=== PATIENT | male | born 1940 | race Caucasian/White ===

== ENCOUNTER 2018-07-25 10:54 | Emergency (ER) | payer MEDICARE ==
[2018-07-25] MEDS ORDERED: Sodium Chloride 0.9% 10 ML Syringe FLUSH PRN (11:16)
--- NOTE | 2018-07-25 11:35 | EDM.PDOC ---
ED HPI GENERAL MEDICAL PROBLEM - General Chief Complaint: Cardiovascular Problem Stated Complaint: FROM [facility] Time Seen by Provider: 07/25/18 11:10 Source of Information: Reports: Patient History Limitations: Reports: No Limitations - History of Present Illness INITIAL COMMENTS - FREE TEXT/NARRATIVE: Antony is a 77 year old male who was sent to the ED today from cardiac rehab as he was found to be in atrial flutter. Patient denies any known hx of this. Patient had an AL 2 months ago, was seen at [facility] in [place] and had 3 stents placed. Patient has been doing cardiac rehab since and has been doing quite well. Patient was started on Brilinta and recently transitioned to Plavix , he reports soft stools with this but denies any hematochezia or bloody stools. Patient is completely asymptomatic, he denies any chest pain, sob, headache, lightheadedness or other complaints. He denies any recent illness, fever, or URI symptoms. Patient is on Lisinopril at home as well as Metoprolol and Gemfibrozil. Patient denies any weight change or lower extremity swelling. Onset: Today - Related Data Allergies Allergy/AdvReac Type Severity Reaction Status Date / Time sulfabenzamide Allergy Hives Verified 12/08/13 23:01 Home Meds: Home Meds Aspirin [Low Dose Aspirin EC] 81 mg PO DAILY 12/08/13 [History] Gemfibrozil 600 mg PO BEDTIME 12/08/13 [History] Lisinopril [Prinivil] 10 mg PO DAILY 12/08/13 [History] atorvaSTATin [Lipitor] 40 mg PO BEDTIME 12/08/13 [History] Clopidogrel [Plavix] 75 mg PO DAILY 07/25/18 [History] Metoprolol Succinate 25 mg PO DAILY 07/25/18 [History] Past Medical History HEENT History: Reports: Impaired Vision Cardiovascular History: Reports: Hypertension, AL, Stents - Infectious Disease History Infectious Disease History: Reports: Chicken Pox, Measles, Mumps - Past Surgical History Cardiovascular Surgical History: Reports: Coronary Artery Stent Social & Family History - Tobacco Use Smoking Status *Q: Never Smoker - Caffeine Use Caffeine Use: Reports: Coffee - Recreational Drug Use Recreational Drug Use: No ED ROS GENERAL - Review of Systems Review Of Systems: ROS reveals no pertinent complaints other than HPI. ED EXAM, GENERAL - Physical Exam Exam: See Below Exam Limited By: No Limitations General Appearance: Alert, WD/WN, No Apparent Distress Eye Exam: Bilateral Eye: EOMI Nose: Normal Inspection Throat/Mouth: Normal Inspection, Normal Oropharynx Neck: Normal Inspection, Supple, Non-Tender Respiratory/Chest: No Respiratory Distress, Lungs Clear, Normal Breath Sounds, No Accessory Muscle Use, Chest Non-Tender Cardiovascular: Normal Peripheral Pulses, Regular Rate, Rhythm, No Murmur, Bradycardia GI/Abdominal: Normal Bowel Sounds, Soft, Non-Tender Extremities: Normal Inspection, Normal Range of Motion, Non-Tender, No Pedal Edema Neurological: Alert, Oriented, CN II-XII Intact Psychiatric: Normal Affect Skin Exam: Warm, Dry, Intact Lymphatic: No Adenopathy EKG INTERPRETATION Rhythm: Other (Juntional Rhythm with some noted P waves in anterior lateral leads) Armour: LAD-Left Armour Deviation P-Wave: Variable QRS: Normal ST-T: Normal QT: Normal Comparison: Change From Previous EKG (2014 shows a NSR with normal rate, normal axis) EKG Interpretation Comments: Repeat EKG shows a sinus bradycardia with no ectopy, no flutter, no signs of acute ischemia Course - Vital Signs Last Recorded V/S: Last Vital Signs Temp 36.9 C 07/25/18 11:00 Pulse 48 L 07/25/18 11:00 Resp 16 07/25/18 11:00 BP 166/73 H 07/25/18 11:00 Pulse Ox 100 07/25/18 11:00 Antony is a very pleasant 77 year old male who presents today from cardiac rehab for atrial flutter. Please refer to HPI and focused exam. Patient arrives here bradycardic which is not new per hx, otherwise hemodynamically stable and afebrile and completely asymptomatic, exam unremarkable. Patient in and out of atrial flutter on monitor. Blood work including CBC, BMP, Troponin and Magnesium are all unremarkable. Repeat EKG with sinus bradycardia. I discussed patient's case with Dr. Phipps, expanded duty dental assistant from [facility] who recommeded stopping aspirin, starting Xarelto or something equivocal and continue with plavix cardiology follow up in 1-2 weeks to discuss possible need for ablation. I discussed recommendations with patient, he was agreeable, we discussed at length bleeding concerns, what to watch for as well as when to return to the ED. Patient okay to attend cardiac rehab on Wednesday. [place] will [place] back [place] on the to see his primary expanded duty dental assistant. Patient instructed to stop the aspiring. Patient discharged in stable condition. - Orders/Labs/Meds Orders: Active Orders 24 hr Category Date Time Status EKG Documentation Completion [RC] ASDIRECTED Care 07/25/18 11:17 Active Peripheral IV Care [RC] . DIRECTED Care 07/25/18 11:16 Active Peripheral IV Insertion Adult [OM.PC] Routine Oth 07/25/18 11:16 Ordered EKG 12 Lead [EK] Routine Ther 07/25/18 11:17 Ordered Labs: Laboratory Tests 07/25/18 07/25/18 07/25/18 Range/Units 11:20 11:20 11:20 WBC 4.8 (4.5-11.0) K/uL RBC 3.57 L (4.30-5.90) M/uL Hgb 12.0 (12.0-15.0) g/dL Hct 36.7 L (40.0-54.0) % MCV 103 H (80-98) fL MCH 34 H (27-31) pg MCHC 33 (32-36) % Plt Count 195 (150-400) K/uL Neut % (Auto) 58 (36-66) % Lymph % (Auto) 25 (24-44) % Whitfield % (Auto) 12 H (2-6) % Eos % (Auto) 4 (2-4) % Baso % (Auto) 1 (0-1) % Sodium 140 (140-148) mmol/L Potassium 4.2 (3.6-5.2) mmol/L Chloride 105 (100-108) mmol/L Carbon Dioxide 29 (21-32) mmol/L Anion Gap 5.9 (5.0-14.0) mmol/L BUN 18 (7-18) mg/dL Creatinine 1.0 (0.8-1.3) mg/dL Est Cr Clr Drug Dosing TNP Estimated GFR (MDRD) > 60 (>60) Glucose 109 H (74-106) mg/dL Calcium 9.2 (8.5-10.1) mg/dL Magnesium 2.0 (1.8-2.4) mg/dL Troponin I < 0.017 (0.000-0.056) ng/mL Meds: Medications Discontinued Medications Generic Name Dose Route Start Last Admin Trade Name Tosin PRN Reason Stop Dose Admin Sodium Chloride 10 ml 07/25/18 11:16 Saline Flush FLUSH ASDIRECTED PRN Keep Vein Open Departure - Departure Time of Disposition: 13:30 Disposition: Home, Self-Care 01 Preliminary Cause of *Q: Cardiac Arrest Condition: Good Clinical Impression: Paroxysmal atrial flutter Instructions: Atrial Flutter Referrals: PCP,None [Primary Care Provider] - Forms: ED Department Discharge Additional Instructions: Start Xarelto today, take in the evening. Stop the Aspirin Follow up with cardiology at [facility] in the next 1-2 weeks. You are fine to attend cardiac rehab on Wednesday. Return here with any chest pain, lightheadedness, shortness of breath, blood in stool, black tarry stool or bleeding that won't stop. If you sustain any head trauma while on the Plavix and Xarelto you need be evaluated. It was nice meeting you, take care and good luck with everything. - My Orders Last 24 Hours: My Active Orders 07/25/18 11:16 Peripheral IV Care [RC] . DIRECTED Peripheral IV Insertion Adult [OM.PC] Routine 07/25/18 11:17 EKG Documentation Completion [RC] ASDIRECTED EKG 12 Lead [EK] Routine - Assessment/Plan Last 24 Hours: My Active Orders 07/25/18 11:16 Peripheral IV Care [RC] . DIRECTED Peripheral IV Insertion Adult [OM.PC] Routine 07/25/18 11:17 EKG Documentation Completion [RC] ASDIRECTED EKG 12 Lead [EK] Routine
== END 2018-07-25 13:10 | disposition home or self-care (01) ==
LOC: JP.ED 10:54
DX: I48.92 Unspecified atrial flutter (principal); I10 Essential (primary) hypertension; I25.2 Old myocardial infarction; Z95.5 Presence of coronary angioplasty implant and graft; Z88.2 Allergy status to sulfonamides; Z79.899 Other long term (current) drug therapy; Z79.82 Long term (current) use of aspirin
CPT/HCPCS: 36415; 80048; 83735; 84484; 85025; 93005; 93010; 99283; 99284-25

== ENCOUNTER 2020-10-24 10:57 | Emergency (ER) | payer MEDICARE ==
--- NOTE | 2020-10-24 11:36 | EDM.PDOC ---
ED HPI GENERAL MEDICAL PROBLEM - General Chief Complaint: Cardiovascular Problem Stated Complaint: CHEST TWINGES SWEATING Time Seen by Provider: 10/24/20 11:35 Source of Information: Reports: Patient, Old Records, RN History Limitations: Reports: No Limitations - History of Present Illness INITIAL COMMENTS - FREE TEXT/NARRATIVE: 79 yo male with known CAD presents with a couple of chest twinges today associated with a mild flush feeling. He has not missed any of his meds recently including his ASA. There has been no nausea, SOB, or diaphoresis with these spells. He is currently asymptomatic. He has no calf pain or swelling. Says his BP can run as high as 170 systolic at home. Onset: Today Onset Date: 10/24/20 Duration: Minutes:, Resolved Prior to Arrival Location: Reports: Chest Quality: Reports: Other ("twinges") Severity: Mild Improves with: Reports: Other (? time) Worsens with: Reports: Other (unknown) Context: Reports: Other (See HPI) Associated Symptoms: Reports: Chest Pain, Other (flushing). 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) (none) - Related Data Allergies Allergy/AdvReac Type Severity Reaction Status Date / Time sulfabenzamide Allergy Hives Verified 12/08/13 23:01 Home Meds: Home Meds Aspirin [Low Dose Aspirin EC] 81 mg PO DAILY 12/08/13 [History] Gemfibrozil 600 mg PO BEDTIME 12/08/13 [History] atorvaSTATin [Lipitor] 40 mg PO BEDTIME 12/08/13 [History] lisinopriL [Prinivil] 10 mg PO DAILY 12/08/13 [History] Clopidogrel [Plavix] 75 mg PO DAILY 07/25/18 [History] Metoprolol Succinate 25 mg PO DAILY 07/25/18 [History] lisinopriL [Lisinopril] 20 mg PO DAILY #230 tablet 10/24/20 [Rx] Past Medical History HEENT History: Reports: Impaired Vision Cardiovascular History: Reports: Hypertension, [place], Stents - Infectious Disease History Infectious Disease History: Reports: Chicken Pox, Measles, Mumps - Past Surgical History Cardiovascular Surgical History: Reports: Coronary Artery Stent Social & Family History - Tobacco Use Tobacco Use Status *Q: Never Tobacco User - Caffeine Use Caffeine Use: Reports: Coffee - Recreational Drug Use Recreational Drug Use: No ED ROS GENERAL - Review of Systems Review Of Systems: See Below Constitutional: Reports: No Symptoms HEENT: Reports: No Symptoms Respiratory: Reports: No Symptoms Cardiovascular: Reports: Chest Pain. Denies: Dyspnea on Exertion, Edema, Lightheadedness, Orthopnea, Palpitations GI/Abdominal: Reports: No Symptoms : Reports: No Symptoms Musculoskeletal: Reports: No Symptoms Skin: Reports: No Symptoms Neurological: Reports: No Symptoms ED EXAM, GENERAL - Physical Exam Exam: See Below Exam Limited By: No Limitations General Appearance: Alert, WD/WN, No Apparent Distress Eye Exam: Bilateral Eye: Normal Inspection Ears: Normal External Exam, Normal Canal Ear Exam: Bilateral Ear: Auricle Normal, Canal Normal Nose: Normal Inspection, No Blood Throat/Mouth: Normal Inspection, Normal Lips, Normal Oropharynx, Normal Voice, No Airway Compromise Head: Atraumatic, Normocephalic Neck: Normal Inspection Respiratory/Chest: No Respiratory Distress, Lungs Clear, Normal Breath Sounds, No Accessory Muscle Use Cardiovascular: Regular Rate, Rhythm, No Edema GI/Abdominal: Normal Bowel Sounds, Soft, Non-Tender, No Distention Back Exam: Normal Inspection Extremities: Normal Inspection, Normal Range of Motion, Non-Tender, No Pedal Edema. No: Pedal Edema Neurological: Alert, Oriented, CN II-XII Intact, Normal Cognition, Normal Reflexes, No Motor/Sensory Deficits Psychiatric: Normal Affect, Normal Mood Skin Exam: Warm, Dry, Intact, Normal Color, No Rash #1 Interpretation EKG Date: 10/24/20 Time: 11:10 Rhythm: NSR Rate (Beats/Min): 60 Amberson: Other (L ant fascicular block) P-Wave: Present QRS: Normal ST-T: Normal QT: Normal Comparison: No Change Course - Vital Signs Last Recorded V/S: Last Vital Signs Temp 36.2 C 10/24/20 11:12 Pulse 60 10/24/20 11:12 Resp 12 10/24/20 11:12 BP 184/88 H 10/24/20 11:44 Pulse Ox 96 10/24/20 11:12 - Orders/Labs/Meds Orders: Active Orders 24 hr Category Date Time Status Cardiac Monitoring [RC] .As Directed Care 10/24/20 11:31 Active EKG Documentation Completion [RC] ASDIRECTED Care 10/24/20 11:31 Active EKG 12 Lead [EK] Routine Ther 10/24/20 11:31 Ordered Labs: Laboratory Tests 10/24/20 Range/Units 11:46 Troponin I < 0.017 (0.000-0.056) ng/mL Meds: Medications Discontinued Medications Generic Name Dose Route Start Last Admin Trade Name Tosin PRN Reason Stop Dose Admin Lisinopril 10 mg 10/24/20 11:37 10/24/20 11:44 Lisinopril 10 Mg Tab PO 10/24/20 11:38 10 mg ONETIME ONE Administration Departure - Departure Time of Disposition: 12:43 Disposition: Home, Self-Care 01 Condition: Fair Clinical Impression: HTN (hypertension) Qualifiers: Hypertension type: unspecified Qualified Code(s): I10 - Essential (primary) hypertension Instructions: Hypertension, Adult, [id number] Referrals: PCP,None [Primary Care Provider] - Forms: ED Department Discharge Additional Instructions: Increase your lisinopril to 20 mg daily. Avoid salt or salty foods. F/U with your doctor for a recheck within the week. Return if worse. Sepsis Event Note (ED) - Evaluation Sepsis Screening Result: No Definite Risk - Focused Exam Vital Signs: Vital Signs Temp Pulse Resp BP BP Pulse Ox 10/24/20 11:44 184/88 H 10/24/20 11:12 36.2 C 60 12 184/83 H 96 - My Orders Last 24 Hours: My Active Orders 10/24/20 11:31 Cardiac Monitoring [RC] .As Directed EKG Documentation Completion [RC] ASDIRECTED EKG 12 Lead [EK] Routine - Assessment/Plan Last 24 Hours: My Active Orders 10/24/20 11:31 Cardiac Monitoring [RC] .As Directed EKG Documentation Completion [RC] ASDIRECTED EKG 12 Lead [EK] Routine
[2020-10-24] MEDS ORDERED: Lisinopril 10 MG Tab PO ONE (11:37)
== END 2020-10-24 12:56 | disposition home or self-care (01) ==
LOC: JP.ED 10:57
DX: I10 Essential (primary) hypertension (principal); I25.10 Atherosclerotic heart disease of native coronary artery without angina pectoris; I25.2 Old myocardial infarction; Z95.5 Presence of coronary angioplasty implant and graft; Z88.2 Allergy status to sulfonamides; Z79.82 Long term (current) use of aspirin; Z79.02 Long term (current) use of antithrombotics/antiplatelets; Z79.899 Other long term (current) drug therapy
CPT/HCPCS: 36415; 84484; 99283; A9270